=== PATIENT | male | born 1990 ===

== ENCOUNTER → 2018-12-08 00:29 | Outpatient (REF) | payer OTHER, SELFPAY ==
[2018-12-11 08:45] LABS: Syphilis AB Cascading Reflex NEGATIVE (Negative)
[2018-12-12 13:49] LABS: Mitogen-NIL 0.66 IU/mL; NIL 0.02 IU/mL; QuantiFERON TB NEGATIVE (Negative); TB1-NIL 0.07 IU/mL
== END ==
LOC: LAB 00:29
PROVIDERS: Visit Provider Physician Assistant
DX: Z11.1 Encounter for screening for respiratory tuberculosis (principal); Z11.3 Encounter for screening for infections with a predominantly sexual mode of transmission
CPT/HCPCS: 36415; 86480; 86780; 87591